=== PATIENT | male | born 1945 | race Caucasian/White ===

== ENCOUNTER 2020-05-11 18:26 | Emergency (ER) | payer MEDICARE, OTHER ==
[2020-05-11] MEDS ORDERED: Bacitracin Oint 1 GM U/D Packet TOP ONE (19:25)
[2020-05-11] MEDS ORDERED: Diphtheria,Pertussis(Acell),Tetanus Vaccine 0.5 ML Syringe IM ONE (19:25)
--- NOTE | 2020-05-11 19:36 | EDM.PDOC ---
ED HPI GENERAL MEDICAL PROBLEM - General Chief Complaint: Upper Extremity Injury/Pain Stated Complaint: CUT FINGER Time Seen by Provider: 05/11/20 19:20 Source of Information: Reports: Patient History Limitations: Reports: No Limitations - History of Present Illness INITIAL COMMENTS - FREE TEXT/NARRATIVE: 74 yo male accidentally cut his finger with a new knife yesterday. He was not going to be seen for this injury, but after he changed the dressing this afternoon it began bleeding again and won't stop. He is on Eliquis. He believes his last tetanus was over 5 yrs ago. Here with his . He is from [facility]. Onset Date: 05/10/20 Duration: Hour(s):, Constant Location: Reports: Upper Extremity, Left Quality: Reports: Dull Severity: Mild Improves with: Reports: None Worsens with: Reports: None Context: Reports: Trauma Associated Symptoms: Reports: Other (bleeding) Treatments [employer]IST: Reports: Other (see below) (wound cleaning) left 3rd digit Pain Score (Numeric/FACES): 2 - Related Data Allergies Allergy/AdvReac Type Severity Reaction Status Date / Time gabapentin Allergy Cannot Verified 05/11/20 18:56 Remember Cmidggf-Mhy-Etj Reductase Allergy Pain Verified 05/11/20 18:56 Inhibitor Home Meds: Home Meds Apixaban [Eliquis] 5 mg PO BID 05/11/20 [History] Ascorbate Calcium [Vitamin C] 500 mg PO DAILY 05/11/20 [History] Diltiazem [Cardizem] 120 mg PO DAILY 05/11/20 [History] Finasteride [Proscar] 5 mg PO DAILY 05/11/20 [History] Loratadine [Claritin] 10 mg PO DAILY 05/11/20 [History] Multivitamin [Multivitamins] 0.5 tab PO BID 05/11/20 [History] Tamsulosin [Flomax] 0.4 mg PO BEDTIME 05/11/20 [History] Past Medical History HEENT History: Reports: Cataract Cardiovascular History: Reports: Afib, Heart Murmur Respiratory History: Reports: SOB, Other (See Below) Other Respiratory History: SOB with activity Gastrointestinal History: Reports: Diverticulosis Genitourinary History: Reports: BPH Musculoskeletal History: Reports: Back Pain, Chronic Psychiatric History: Reports: Anxiety Hematologic History: Reports: Anticoagulation Therapy - Infectious Disease History Infectious Disease History: Reports: Chicken Pox - Past Surgical History HEENT Surgical History: Reports: Cataract Surgery GI Surgical History: Reports: Colonoscopy Neurological Surgical History: Reports: Spinal Fusion Musculoskeletal Surgical History: Reports: Hip Replacement Social & Family History - Tobacco Use Tobacco Use Status *Q: Former Tobacco User Used Tobacco, but Quit: Yes Month/Year Tobacco Last Used: november 2007 - Caffeine Use Caffeine Use: Reports: Coffee, Soda - Recreational Drug Use Recreational Drug Use: No Review of Systems - Review of Systems Review Of Systems: See Below Constitutional: Reports: No Symptoms Musculoskeletal: Reports: No Symptoms Skin: Reports: Wound (finger laceration) Neurological: Reports: No Symptoms ED EXAM, GENERAL - Physical Exam Exam: See Below Exam Limited By: No Limitations General Appearance: Alert, WD/WN, No Apparent Distress Extremities: Normal Range of Motion, No Pedal Edema, Other (wound finger on L hand). No: Pedal Edema, Limited Range of Motion, Increased Warmth, Redness Neurological: Alert, Oriented, CN II-XII Intact, Normal Cognition, No Motor/Sensory Deficits Psychiatric: Normal Affect, Normal Mood Skin Exam: Warm, Dry, Normal Color, No Rash, Wound/Incision (day old laceration of the L ) ED TRAUMA EXTREMITY PROCEDURES - Laceration/Wound Repair Left Distal Digit - 3rd (Middle) Lac/Wound Length In cm: 0.2 (laceration if longer than this, but I am only controlling bleeding today, wound too old for closure. ) Appearance: Subcutaneous, Linear, Clean Distal NVT: Neuro & Vascular Intact, No Tendon Injury Anesthetic Type: Local Local Anesthesia - Lidocaine (Xylocaine): 1% with EPI Local Anesthetic Volume: 1cc Skin Prep: Isopropyl Alcohol (Alcohol) Exploration/Debridement/Repair: Other (not deep enough to require exploration.) Closed With: Sutures Suture Size: 5-0 # of Sutures: 1 (purse-string suture placed to control arteriolar bleed.) Suture Type: Nylon Complication Description: His arteriole has stopped bleeding, but there is still some oozing due to his Eliquis. Will use silver nitrate on this area and then apply tube gauze and a non-stick dressing. Course - Vital Signs Last Recorded V/S: Last Vital Signs Temp 36.3 C 05/11/20 19:02 Pulse 61 05/11/20 19:02 Resp 16 05/11/20 19:02 BP 166/79 H 05/11/20 19:02 Pulse Ox 96 05/11/20 19:02 - Orders/Labs/Meds Orders: Active Orders 24 hr Category Date Time Status Vaccines to be Administered [RC] PER UNIT ROUTINE Care 05/11/20 19:25 Active Silver Nitrate Med 05/11/20 20:03 Once 1 each TOP ONETIME ONE Meds: Medications Discontinued Medications Generic Name Dose Route Start Last Admin Trade Name tSephy PRN Reason Stop Dose Admin Bacitracin 1 dose 05/11/20 19:25 05/11/20 19:46 Bacitracin Oint 1 Gm TOP 05/11/20 19:26 1 dose ONETIME ONE Administration Diphtheria/Tetanus/Acell Pertussis 0.5 ml 05/11/20 19:25 05/11/20 19:46 Boostrix IM 05/11/20 19:26 0.5 ml .ONCE ONE Administration Departure - Departure Time of Disposition: 20:15 Disposition: Home, Self-Care 01 Condition: Good Clinical Impression: Bleeding from wound - Discharge Information *PRESCRIPTION DRUG MONITORING PROGRAM REVIEWED*: Not Applicable *COPY OF PRESCRIPTION DRUG MONITORING REPORT IN PATIENT TERELL: Not Applicable Referrals: PCP,None [Primary Care Provider] - Forms: ED Department Discharge Additional Instructions: Leave today's dressing on for 24 hrs. Keep wound elevated above your heart. Tomorrow you may resume usual wound care. Recheck for signs of infection or for recurrent bleeding. Your stitch will need to be taken out in about 5-7 days. Acetaminophen for pain relief. Sepsis Event Note (ED) - Evaluation Sepsis Screening Result: No Definite Risk - Focused Exam Vital Signs: Vital Signs Temp Pulse Resp BP Pulse Ox 05/11/20 19:02 36.3 C 61 16 166/79 H 96 05/11/20 18:48 36.3 C 61 16 166/79 H 96 - My Orders Last 24 Hours: My Active Orders 05/11/20 19:25 Vaccines to be Administered [RC] PER UNIT ROUTINE 05/11/20 20:03 Silver Nitrate 1 each TOP ONETIME ONE - Assessment/Plan Last 24 Hours: My Active Orders 05/11/20 19:25 Vaccines to be Administered [RC] PER UNIT ROUTINE 05/11/20 20:03 Silver Nitrate 1 each TOP ONETIME ONE
[2020-05-11] MEDS ORDERED: Silver Nitrate Applicator Each TOP ONE (20:03)
== END 2020-05-11 20:28 | disposition home or self-care (01) ==
LOC: JP.ED 18:26
DX: S61.213A Laceration without foreign body of left middle finger without damage to nail, initial encounter (principal); I48.91 Unspecified atrial fibrillation; N40.0 Benign prostatic hyperplasia without lower urinary tract symptoms; Z87.891 Personal history of nicotine dependence; Z88.8 Allergy status to other drugs, medicaments and biological substances; Z79.01 Long term (current) use of anticoagulants; Z79.899 Other long term (current) drug therapy; Z23 Encounter for immunization; W26.0XXA Contact with knife, initial encounter
CPT/HCPCS: 12001; 90471; 90715; 99282-25